=== PATIENT | female | born 1990 | race Hispanic/Latino ===

== ENCOUNTER 2018-01-20 09:53 | Emergency (ER) | payer SELFPAY ==
[2018-01-20 10:35] LABS: BASO # 0.03 K/mm3 (0.0-2.0); BASO % 0.5 % (0.0-3.0); EOS # 0.3 (0.0-0.7); EOS % 4.4 % (1.5-5.0); GRAN # 2.77 (1.4-6.5); GRAN % 48.6 % (50.0-68.0); HEMOGLOBIN 14.1 g/dL (12.0-16.0); LYMPH # 2.1 (1.2-3.4); LYMPH % 37.2 % (22.0-35.0); MEAN CELL VOLUME 98.4 fl (80.0-105.0); MEAN CORPUSCULAR HEMOGLOBIN 32.9 pg (25.0-35.0); MEAN CORPUSCULAR HGB CONC 33.5 g/dl (31.0-37.0); MEAN PLATELET VOLUME 11.2 fl (7.0-11.0); MONO # 0.5 (0.1-0.6); MONO % 9.3 % (1.0-6.0); RBC 4.28 10^6/uL (3.5-6.1); RED CELL DISTRIBUTION WIDTH 12.4 % (11.5-14.5); WHITE BLOOD COUNT 5.7 10^3/ul (4.5-11.0)
--- NOTE | 2018-01-20 10:37 | ED PDOC ---
Arrival/HPI - General Chief Complaint: Chest Pain Time Seen by Provider: 01/20/18 10:15 Historian: Patient - History of Present Illness Narrative History of Present Illness (Text): 01/20/18 10:30 27yo female with Past medical history of anxiety who present with complaint of chest pain that started this morning. States chest pain while at work, with deep inspiration and movement. She reports history of chest pain with her anxiety, but states it usually occurs with palpitation. States she had shortness of breath when the chest pain started at 0930am, but it resolved. She denies fever,chills, cough, recent travel, recent surgery, calf pain, LE edema, diaphoresis, nausea, abdominal pain. Past Medical History - Provider Review Nursing Documentation Reviewed: Yes - Psychiatric Hx Psychophysiologic Disorder: Yes Hx Anxiety: Yes Hx Substance Use: No Family/Social History - Physician Review Nursing Documentation Reviewed: Yes Family/Social History: Unknown Family HX Smoking Status: Light Smoker < 10 Cigarettes Daily Hx Alcohol Use: Yes Frequency of alcohol use: Socially Hx Substance Use: No Allergies/Home Meds Allergies/Adverse Reactions: Allergies Penicillins Allergy (Verified 01/20/18 09:59) RASH Home Medications: Home Meds Medication Instructions Recorded Confirmed Escitalopram [Lexapro] 20 mg PO DAILY 01/20/18 01/20/18 Review of Systems - Physician Review All systems were reviewed & negative as marked: Yes - Review of Systems Constitutional: Normal Eyes: Normal ENT: Normal Respiratory: Normal Cardiovascular: Chest Pain. absent: Palpitations, Edema, ANGEL Gastrointestinal: Normal Genitourinary Female: Normal Musculoskeletal: Normal Skin: Normal Neurological: Normal Endocrine: Normal Hemo/Lymphatic: Normal Psychiatric: Normal Physical Exam Vital Signs Reviewed: Yes Vital Signs Temp Pulse Resp BP Pulse Ox 01/20/18 14:31 82 18 112/87 98 01/20/18 10:38 97.7 F 72 18 109/67 99 Temperature: Afebrile Blood Pressure: Normal Pulse: Regular Respiratory Rate: Normal Appearance: Positive for: Well-Appearing, Non-Toxic, Comfortable Pain Distress: None Mental Status: Positive for: Alert and Oriented X 3 - Systems Exam Head: Present: Atraumatic, Normocephalic Pupils: Present: PERRL Extroacular Muscles: Present: EOMI Conjunctiva: Present: Normal Mouth: Present: Moist Mucous Membranes Neck: Present: Normal Range of Motion Respiratory/Chest: Present: Clear to Auscultation, Good Air Exchange. No: Respiratory Distress, Accessory Muscle Use, Wheezes, Decreased Breath Sounds, Rales, Retracting, Rhonchi, Tachypneic, Tender to Palpation Cardiovascular: Present: Regular Rate and Rhythm, Normal S1, S2. No: Murmurs Abdomen: No: Tenderness, Distention, Peritoneal Signs Back: Present: Normal Inspection Upper Extremity: Present: Normal Inspection. No: Cyanosis, Edema Lower Extremity: Present: Normal Inspection. No: Edema Neurological: Present: GCS=15, CN II-XII Intact, Speech Normal Skin: Present: Warm, Dry, Normal Color. No: Rashes Psychiatric: Present: Alert, Oriented x 3, Normal Insight, Normal Concentration Medical Decision Making ED Course and Treatment: 01/20/18 19:45 Pt in Emergency department for stated history. Her pain is pleuritic. First and second CE was negative. Chest X-ray NAD EKG NSR @63bpm NSTMI All result was DW the pt. Her pain improved in Emergency department with medication. She was DD and strongly advised to f/u with a Premium Representative secondary to her family cardiac risk factor. Advised TRT Emergency department for any new or worsening symptoms. - Lab Interpretations Lab Results: 01/20/18 10:00 01/20/18 10:00 Lab Results 01/20/18 13:52: Troponin I < 0.01 01/20/18 10:30: Urine Opiates Screen Negative, Urine Methadone Screen Negative, Ur Barbiturates Screen Negative, Ur Phencyclidine Scrn Negative, Ur Amphetamines Screen Negative, U Benzodiazepines Scrn Negative, U Oth Cocaine Metabols Negative, U Cannabinoids Screen Positive H 01/20/18 10:30: Urine Color Yellow, Urine Appearance Sl cloudy, Urine pH 8.0, Ur Specific [place] 1.015, Urine Protein Trace H, Urine Glucose (UA) Negative, Urine Ketones Negative, Urine Blood Negative, Urine Nitrate Negative, Urine Bilirubin Negative, Urine Urobilinogen 0.2, Ur Leukocyte Esterase Negative, Urine RBC Negative, Urine WBC 2 - 5, Ur Epithelial Cells Tntc, Urine Bacteria Mod 01/20/18 10:00: Sodium 142, Potassium 4.1, Chloride 101, Carbon Dioxide 29, Anion Gap 16, BUN 15, Creatinine 0.6 L, Est GFR ( Amer) > 60, Est GFR ( Non-Af Amer) > 60, Random Glucose 90, Calcium 10.5, Magnesium 2.4 H, Total Bilirubin 0.9, AST 29, ALT 22, Alkaline Phosphatase 38, Lactate Dehydrogenase 428, Total Creatine Kinase 40, Troponin I < 0.01, Total Protein 8.2, Albumin 5.0 H, Globulin 3.2, Albumin/Globulin Ratio 1.6 01/20/18 10:00: PT 11.4, INR 0.99, APTT 27.7, D-Dimer, Quantitative 206 01/20/18 10:00: WBC 5.7, RBC 4.28, Hgb 14.1, Hct 42.1, MCV 98.4, MCH 32.9, MCHC 33.5, RDW 12.4, Plt Count 253, MPV 11.2 H, Gran % 48.6 L, Lymph % (Auto) 37.2 H , Early % (Auto) 9.3 H, Eos % (Auto) 4.4, Baso % (Auto) 0.5, Gran # 2.77, Lymph # (Auto) 2.1, Early # (Auto) 0.5, Eos # (Auto) 0.3, Baso # (Auto) 0.03 - RAD Interpretation Radiology Orders: 01/20/18 10:26 CHEST PORTABLE [RAD] Stat - Medication Orders Current Medication Orders: Discontinued Medications Aspirin (Aspirin) 325 mg PO STAT STA Stop: 01/20/18 10:27 Last Admin: 01/20/18 10:36 Dose: 325 mg Morphine Sulfate (Morphine) 2 mg IVP STAT STA Stop: 01/20/18 12:07 Last Admin: 01/20/18 12:14 Dose: 2 mg IVP Administration Document 01/20/18 12:14 HI (Rec: 01/20/18 12:15 HI [id number]) Charges for Administration # of IVP Administrations 1 Disposition/Present on Arrival - Present on Arrival Any Indicators Present on Arrival: No History of DVT/PE: No History of Uncontrolled Diabetes: No Urinary Catheter: No History of Decub. Ulcer: No History Surgical Site Infection Following: None - Disposition Have Diagnosis and Disposition been Completed?: Yes Diagnosis: Chest pain Disposition: HOME/ ROUTINE Disposition Time: 14:30 Patient Plan: Discharge Condition: STABLE Discharge Instructions (ExitCare): Chest Pain (ED) Additional Instructions: Follow up with your Doctor/Premium Representative Return to Emergency department for any new or worsening symptoms Referrals: Macho Scanlon MD [Staff Provider] - Follow up with primary Forms: [employer] (Al[place]ian), WORK NOTE
[2018-01-20 10:38] VITALS: RESP 18; TEMP 97.7
[2018-01-20 10:45] LABS: ALB/GLOB RATIO 1.6 (1.1-1.8); ALT/SGPT 22 U/L (7-56); AST/SGOT 29 U/L (14-36); BLOOD UREA NITROGEN 15 mg/dL (7-21); CALCIUM 10.5 mg/dL (8.4-10.5); GFR AFRICAN-AMERICAN > 60; GFR NON-AFRICAN AMERICAN > 60
[2018-01-20 10:48] LABS: INR 0.99 (0.93-1.08); PARTIAL THROMBOPLASTIN TIME 27.7 Seconds (25.1-36.5); PROTHROMBIN TIME 11.4 SECONDS (9.4-12.5)
[2018-01-20 10:57] LABS: TROPONIN I < 0.01 ng/mL
--- NOTE | 2018-01-20 10:58 | RAD ---
HISTORY: chest pain COMPARISON: No prior. FINDINGS: LUNGS: No active pulmonary disease. PLEURA: No significant pleural effusion identified, no pneumothorax apparent. CARDIOVASCULAR: Normal. OSSEOUS STRUCTURES: No significant abnormalities. VISUALIZED UPPER ABDOMEN: Normal. OTHER FINDINGS: None. IMPRESSION: No active disease.
[2018-01-20 10:59] LABS: URINE BILIRUBIN NEGATIVE (NEGATIVE); URINE BLOOD NEGATIVE (NEGATIVE); URINE GLUCOSE (UA) NEGATIVE (NEGATIVE); URINE LEUKOCYTE ESTERASE NEGATIVE Leu/uL (NEGATIVE); URINE PROTEIN TRACE mg/dL (<30 mg/dL); URINE UROBILINOGEN 0.2 E.U./dL (<1 E.U./dL)
[2018-01-20 11:00] LABS: URINE COLOR YELLOW (YELLOW)
[2018-01-20 11:06] LABS: BARBITURATES, UR NEGATIVE (NEGATIVE); BENZODIAZEPINES, UR NEGATIVE (NEGATIVE); OPIATES, UR NEGATIVE (NEGATIVE); PHENCYCLIDINE, UR NEGATIVE (NEGATIVE)
[2018-01-20 11:15] LABS: URINE APPEARANCE SL CLOUDY (CLEAR); URINE BACTERIA MOD (NEG); URINE EPITHELIAL CELLS TNTC /hpf (0-5); URINE RBC NEGATIVE /hpf (0-2)
[2018-01-20] MEDS ORDERED: Morphine 2 mg/2 mL syringe IVP STA (12:06)
[2018-01-20] MEDS ORDERED: Morphine 2 mg/2 mL syringe ONE (12:09)
[2018-01-20 15:45] VITALS: BP 112/87; PULSE 82; O2SAT 98
--- NOTE | 2018-01-20 19:19 | CARD ---
APPROVED REPORT EKG Measurement Heart [id number] <Conclusion> Normal sinus rhythm with sinus arrhythmia Normal ECG
== END 2018-01-20 14:31 | disposition home or self-care (01) ==
LOC: ED 09:53
DX: R07.9 Chest pain, unspecified (principal)
CPT/HCPCS: 71045; 80053; 81001; 82550; 83615; 83735; 84484; 85025; 85378; 85610; 85730; 93005; 96374; 99284; G0480; J2270